=== PATIENT | female | born 1980 | race Caucasian/White ===

== ENCOUNTER 2024-12-22 07:40 | Emergency (ER) | payer OTHER ==
[2024-12-22 08:02] LABS: BILIRUBIN,URINE NEGATIVE (NEGATIVE); GLUCOSE,URINE NORMAL (NORMAL); KETONES,URINE 15 mg/dL (NEGATIVE); LEUKOCYTE ESTERASE,URINE NEGATIVE (NEGATIVE); NITRITE,URINE NEGATIVE (NEGATIVE); OCCULT BLOOD,URINE NEGATIVE (NEGATIVE); PROTEIN,URINE NEGATIVE (NEGATIVE); UROBILINOGEN,URINE NORMAL (NEGATIVE)
[2024-12-22 08:07] LABS: APPEARANCE,URINE CLEAR (CLEAR); COLOR,URINE YELLOW (YELLOW)
[2024-12-22 08:08] LABS: BACTERIA,URINE OCCASIONAL (NS); SQUAMOUS EPITHELIAL CELLS,UR OCCASIONAL (NS,R,O)
[2024-12-22] MEDS ORDERED: Naloxone 0.4 MG/ML SDV IVPUSH PRN (08:14)
[2024-12-22] MEDS: Sodium Chloride 0.9% 1,000 ML IV ONE (08:22)
[2024-12-22] MEDS: Ondansetron 4 MG/2 ML SDV IVPUSH ONE (08:24)
[2024-12-22] MEDS: HYDROmorphone 2 MG/ML SDV IVPUSH ONE ×2 (08:24→10:31)
[2024-12-22 08:31] LABS: BLOOD UREA NITROGEN,BUN 7 mg/dL (7-18); CALCIUM 8.3 mg/dL (8.6-10.2); CARBON DIOXIDE,CO2 26 mmol/L (21-32); CHLORIDE,CL 101 mmol/L (100-110); EST CRCL DRUG DOSING (CG) 71.27 mL/min; ESTIMATED GFR 72 mL/min (>60); GLUCOSE RANDOM 109 mg/dL (80-116); POTASSIUM,K 3.5 mmol/L (3.5-5.3); SODIUM,NA 140 mmol/L (135-145)
[2024-12-22 08:32] LABS: BASOPHILS PERCENT AUTO 0.3 % (0.2-1.5); EOSINOPHILS ABSOLUTE AUTO 0.1 x10-3/uL (0.0-0.8); HEMATOCRIT 44.6 % (34.2-48.2); HEMOGLOBIN 15.1 g/dL (11.4-15.5); LIPASE 25 U/L (16-77); LYMPHOCYTES ABSOLUTE AUTO 2.1 x10-3/uL (1.0-4.4); LYMPHOCYTES PERCENT AUTO 25.1 % (18.4-52.1); MEAN CORPUSCULAR HEMOGLOBIN 31.1 pg (23.9-33.9); MEAN CORPUSCULAR HGB CONC 33.8 g/dL (31.9-34.8); MEAN CORPUSCULAR VOLUME 91.9 fL (76.7-100.5); MEAN PLATELET VOLUME 7.8 fL (7.1-12.4); MONOCYTES ABSOLUTE AUTO 0.6 x10-3/uL (0.3-1.0); MONOCYTES PERCENT AUTO 6.8 % (4.4-15.7); NEUTROPHILS ABSOLUTE AUTO 5.5 x10-3/uL (1.5-6.3); NEUTROPHILS PERCENT AUTO 66.9 % (30.8-76.2); PLATELET COUNT,PLT 271 x10(3)uL (151-488); RED BLOOD CELL COUNT 4.85 x10(6)uL (3.60-5.20); RED CELL DISTRIBUTION WIDTH 13.3 % (12.3-16.5); WHITE BLOOD CELL COUNT,WBC 8.3 x10-3/uL (3.0-10.3)
[2024-12-22 08:33] LABS: C-REACTIVE PROTEIN < 0.50 mg/dL (<0.50)
[2024-12-22 08:37] LABS: ALANINE AMINOTRANSFERASE,ALT 23 U/L (12-36); ALBUMIN 3.6 g/dL (3.5-5.2); ALKALINE PHOSPHATASE 69 IU/L (56-112); ASPARTATE AMNIOTRANSFERASE,AST 18 IU/L (5-25); BILIRUBIN TOTAL 0.8 mg/dL (0.1-1.3); MAGNESIUM 1.9 mg/dL (1.8-2.5); PROTEIN TOTAL,TP 7.4 g/dL (6.0-8.0)
[2024-12-22] MEDS: Iopamidol 755 Mg/ML 100 ML Bottle IV ONE (09:10)
[2024-12-22] MEDS: Ketorolac 30 MG/ML SDV IVPUSH ONE (09:44)
[2024-12-22] MEDS: Prochlorperazine 10 MG/2 ML SDV IVPUSH ONE (09:45)
[2024-12-22] MEDS: Sodium Chloride 0.9% 10 ML Syringe FLUSH PRN (09:46)
[2024-12-22] MEDS: diphenhydrAMINE 50 MG/ML SDV IVPUSH ONE (09:47)
== END 2024-12-22 10:38 | disposition home or self-care (01) ==
LOC: FB.ED 07:40
DX: E86.0 Dehydration (principal); R10.31 Right lower quadrant pain; R10.32 Left lower quadrant pain; I12.9 Hypertensive chronic kidney disease with stage 1 through stage 4 chronic kidney disease, or unspecified chronic kidney disease; N18.9 Chronic kidney disease, unspecified; F17.290 Nicotine dependence, other tobacco product, uncomplicated; Z88.8 Allergy status to other drugs, medicaments and biological substances; Z79.82 Long term (current) use of aspirin; Z79.899 Other long term (current) drug therapy; Z90.49 Acquired absence of other specified parts of digestive tract; Z90.710 Acquired absence of both cervix and uterus
CPT/HCPCS: 36415; 74177; 80053; 81001; 83605; 83690; 83735; 85025; 86140; 96361; 96374; 96375; 96376; 99284; 99284-25; J0780; J1171; J1200; J1885; J2405; J7030; Q9967

== ENCOUNTER 2025-01-20 19:45 | Emergency (ER) | payer MEDICAID, OTHER ==
[2025-01-20] MEDS ORDERED: Ketorolac 30 MG/ML SDV IVPUSH ONE (19:55)
[2025-01-20] MEDS: Metoclopramide 10 MG/2 ML SDV IVPUSH ONE (20:11)
[2025-01-20 20:13] LABS: BASOPHILS PERCENT AUTO 0.4 % (0.2-1.5); EOSINOPHILS PERCENT AUTO 0.1 % (0.6-8.1); HEMATOCRIT 44.3 % (34.2-48.2); HEMOGLOBIN 15.3 g/dL (11.4-15.5); LYMPHOCYTES ABSOLUTE AUTO 1.4 x10-3/uL (1.0-4.4); LYMPHOCYTES PERCENT AUTO 17.6 % (18.4-52.1); MEAN CORPUSCULAR HEMOGLOBIN 30.7 pg (23.9-33.9); MEAN CORPUSCULAR HGB CONC 34.5 g/dL (31.9-34.8); MEAN CORPUSCULAR VOLUME 88.9 fL (76.7-100.5); MONOCYTES ABSOLUTE AUTO 0.3 x10-3/uL (0.3-1.0); MONOCYTES PERCENT AUTO 3.7 % (4.4-15.7); NEUTROPHILS ABSOLUTE AUTO 6.2 x10-3/uL (1.5-6.3); NEUTROPHILS PERCENT AUTO 78.2 % (30.8-76.2); PLATELET COUNT,PLT 313 x10(3)uL (151-488); RED BLOOD CELL COUNT 4.98 x10(6)uL (3.60-5.20); WHITE BLOOD CELL COUNT,WBC 7.9 x10-3/uL (3.0-10.3)
[2025-01-20] MEDS: diphenhydrAMINE 50 MG/ML SDV IVPUSH ONE ×2 (20:14→21:18)
[2025-01-20 20:15] LABS: BLOOD UREA NITROGEN,BUN 18 mg/dL (7-18); CALCIUM 8.7 mg/dL (8.6-10.2); CARBON DIOXIDE,CO2 26 mmol/L (21-32); CHLORIDE,CL 108 mmol/L (100-110); CREATININE 0.9 mg/dL (0.55-1.02); ESTIMATED GFR 82 mL/min (>60); GLUCOSE RANDOM 114 mg/dL (80-116); POTASSIUM,K 3.5 mmol/L (3.5-5.3); SODIUM,NA 141 mmol/L (135-145)
[2025-01-20] MEDS: Sodium Chloride 0.9% 1,000 ML IV ONE (20:16)
[2025-01-20 20:21] LABS: ALANINE AMINOTRANSFERASE,ALT 21 U/L (12-36); ALBUMIN 3.7 g/dL (3.5-5.2); ALKALINE PHOSPHATASE 71 IU/L (56-112); ASPARTATE AMNIOTRANSFERASE,AST 17 IU/L (5-25); BILIRUBIN TOTAL 0.4 mg/dL (0.1-1.3); MAGNESIUM 1.8 mg/dL (1.8-2.5); PROTEIN TOTAL,TP 7.6 g/dL (6.0-8.0)
[2025-01-20] MEDS: Acetaminophen 500 MG Tab PO ONE (21:17)
[2025-01-20] MEDS: hydrOXYzine HCl 50 MG/ML SDV IM ONE (21:18)
[2025-01-20] MEDS: Ibuprofen 800 MG Tab PO ONE (22:11)
[2025-01-20] MEDS: OLANZapine 10 MG Vial IM ONE (22:18)
== END 2025-01-20 23:06 | disposition home or self-care (01) ==
LOC: FB.ED 19:45
DX: R11.2 Nausea with vomiting, unspecified (principal); K58.9 Irritable bowel syndrome, unspecified; F41.9 Anxiety disorder, unspecified; I12.9 Hypertensive chronic kidney disease with stage 1 through stage 4 chronic kidney disease, or unspecified chronic kidney disease; N18.9 Chronic kidney disease, unspecified; Z90.49 Acquired absence of other specified parts of digestive tract; Z79.899 Other long term (current) drug therapy; Z79.82 Long term (current) use of aspirin; Z88.8 Allergy status to other drugs, medicaments and biological substances; Z88.1 Allergy status to other antibiotic agents
CPT/HCPCS: 36415; 80053; 83690; 83735; 85025; 86140; 96361; 96372; 96374; 96375; 96376; 99284; A9270; J1200; J2359; J2765; J3410; J7030